=== PATIENT | male | born 1960 | race Caucasian/White ===

== ENCOUNTER 2017-07-26 18:33 | Emergency (ER) | payer OTHER ==
[2017-07-26 18:47] VITALS: RESP 18
[2017-07-26 19:51] VITALS: BP 150/79; PULSE 65; TEMP 97.7
[2017-07-26 19:53] VITALS: O2SAT 98
--- NOTE | 2017-07-26 19:53 | C.PDOC ---
History Of Present Illness 56 year old male presents to the ED for evaluation of dizziness and headache which began around 5 days ago. Patient states he was at work when he accidentally struck his head against a metal beam. Patient notes he initially experienced slight nausea and has been experiencing intermittent "pounding" headaches. Otherwise, patient denies LOC, vision change, extremity numbness/ weakness. - HPI Chief Complaint (Nursing): Trauma History Per: Patient History/Exam Limitations: no limitations Onset/Duration Of Symptoms: Days, Intermittent Episodes Injury Occurred (Timing): Days Ago: (4) Associated Symptoms: Dizziness Additional History Per: Patient Past Medical History Reviewed: Historical Data, Nursing Documentation, Vital Signs Vital Signs: Last Vital Signs Temp 97.7 F 07/26/17 19:47 Pulse 65 07/26/17 19:47 Resp 18 07/26/17 19:47 BP 150/79 07/26/17 19:47 Pulse Ox 98 07/26/17 23:00 - Medical History PMH: Arthritis, HTN Surgical History: No Surg Hx Family History: States: Unknown Family Hx - Social History Hx Tobacco Use: Yes Hx Alcohol Use: No Hx Substance Use: No - Immunization History Hx Tetanus Toxoid Vaccination: No Hx Influenza Vaccination: No Hx Pneumococcal Vaccination: No Review Of Systems Eyes: Negative for: Vision Change Neurological: Positive for: Headache, Dizziness. Negative for: Weakness, Numbness, Other (LOC) Physical Exam - Physical Exam Appears: Non-toxic, No Acute Distress Skin: Normal Color, Warm, Dry Head: Atraumatic, Normacephalic, No Tenderness, No Swelling, No Abrasion, No Laceration Eye(s): bilateral: Normal Inspection, PERRL, EOMI Oral Mucosa: Moist Neck: Supple Cardiovascular: Rhythm Regular, No Murmur Respiratory: Normal Breath Sounds, No Accessory Muscle Use Extremity: Normal ROM, Capillary Refill (less than 2 seconds ) Neurological/Psych: Oriented x3, Normal Speech, Normal Cognition, Normal Cranial Nerves, Normal Motor, Normal Sensation, Other (heal to capone, finger to nose, protonator drift are all unremarkable. Patient is able to recall names of objects. Patient's immediate and short-term memory is intact ) Gait: Steady ED Course And Treatment O2 Sat by Pulse Oximetry: 98 (on RA) Pulse Ox Interpretation: Normal Medical Decision Making Medical Decision Making: Progress: Patient's neurological exam was unremarkable with no significant findings. Patient refused CT scan at this time. Patient is informed that his symptoms are likely indicative of post-concussive syndrome and are likely to self-resolve in a few weeks. Patient is advised to follow up with his PMD and referred neurologist within 1- 2 days for further evaluation and/or return to the ED if symptoms return or worsen. Disposition - Disposition Referrals: [facility] at [facility] [Outside] Disposition: HOME/ ROUTINE Disposition Time: 05:07 Condition: FAIR Prescriptions: Acetaminophen/Butalbital/Caf [Fioricet] 1 tab PO TID PRN #21 tab PRN Reason: Pain, Severe (8-10) Instructions: Butalbital/Acetaminophen/Caffeine (By mouth), Concussion (ED), Head Injury (ED) Forms: General Discharge Instructions, [facility] (Malawian) - Clinical Impression Clinical Impression: Concussion injury of brain - Scribe Statement The provider has reviewed the documentation as recorded by the Scribe (Digna Blanco) Provider Attestation: All medical record entries made by the Scribe were at my direction and personally dictated by me. I have reviewed the chart and agree that the record accurately reflects my personal performance of the history, physical exam, medical decision making, and the department course for this patient. I have also personally directed, reviewed, and agree with the discharge instructions and disposition.
== END 2017-07-26 19:51 | disposition home or self-care (01) ==
LOC: C.ER 18:33
DX: S06.0X0A Concussion without loss of consciousness, initial encounter (principal); W22.8XXA Striking against or struck by other objects, initial encounter; Y92.89 Other specified places as the place of occurrence of the external cause; Y99.0 Civilian activity done for income or pay

== ENCOUNTER 2017-10-05 19:18 | Emergency (ER) | payer OTHER ==
--- NOTE | 2017-10-05 21:01 | C.PDOC ---
History Of Present Illness 57 y/o male presents to ED with complaints of cough, throat pain, myalgias, subjective fever x 3 days. Patient denies receiving flu vaccine, sick contacts or any other complaints at this time. Time Seen by Provider: 10/05/17 20:47 Chief Complaint (Nursing): Flu-like Symptoms History Per: Patient History/Exam Limitations: no limitations Onset/Duration Of Symptoms: Days (3) Current Symptoms Are (Timing): Still Present Location Of Pain: Throat, Diffuse Myalgias, Headache Sick Contacts (Context): None Associated Symptoms: Fever, Chills, Sore Throat, Cough, Sputum, Myalgias. denies: Nausea, Vomiting, Diarrhea Ear Symptoms: Bilateral: None Past Medical History Reviewed: Historical Data, Nursing Documentation, Vital Signs Vital Signs: Last Vital Signs Temp 99.3 F 10/05/17 21:52 Pulse 87 10/05/17 21:52 Resp 22 10/05/17 21:52 BP 132/71 10/05/17 21:52 Pulse Ox 99 10/06/17 15:54 - Medical History PMH: Arthritis, HTN Denies: Chronic Kidney Disease Family History: States: Unknown Family Hx - Social History Hx Tobacco Use: Yes Hx Alcohol Use: No Hx Substance Use: No - Immunization History Hx Tetanus Toxoid Vaccination: No Hx Influenza Vaccination: No Hx Pneumococcal Vaccination: No Review Of Systems Constitutional: Positive for: Fever, Chills, Malaise ENT: Positive for: Nose Discharge, Throat Pain. Negative for: Ear Pain Cardiovascular: Negative for: Chest Pain Respiratory: Positive for: Cough. Negative for: Shortness of Breath Gastrointestinal: Negative for: Nausea, Vomiting, Abdominal Pain Skin: Negative for: Rash Neurological: Negative for: Weakness, Numbness Physical Exam - Physical Exam Appears: Non-toxic, Other (uncomfortable, unwell) Skin: Warm, Dry Head: Atraumatic, Normacephalic Eye(s): bilateral: Normal Inspection Ear(s): Bilateral: Normal Nose: No Discharge Oral Mucosa: Moist Tongue: Normal Appearing Lips: Other (mild chapped) Throat: Erythema, Exudate (scant adjacent to uvula) Neck: Supple Lymphatic: No Adenopathy Chest: No Deformity, No Tenderness Cardiovascular: Rhythm Regular, No Murmur Respiratory: No Decreased Breath Sounds, No Wheezing Gastrointestinal/Abdominal: Soft, No Tenderness Neurological/Psych: Oriented x3, Normal Speech, Normal Cognition ED Course And Treatment O2 Sat by Pulse Oximetry: 99 Medical Decision Making Medical Decision Making: pt with 3 days of flu like symptoms and sore throat with neg rapid strep, d/c home with tamiflu, pmd. Disposition - Disposition Referrals: Ranjeet Blanco MD [Staff Provider] - Disposition: HOME/ ROUTINE Disposition Time: 21:41 Condition: IMPROVED Additional Instructions: Drink increased fluids, bed rest, tylenol or motrin every 4-6 hours for pain and fever. Follow up Dr Blanco next week. Instructions: Influenza (ED) Forms: General Discharge Instructions, [facility] (South Korean), Work Excuse - Clinical Impression Clinical Impression: Influenza-like illness
[2017-10-05 21:53] VITALS: BP 132/71; PULSE 87; RESP 22; TEMP 99.3
[2017-10-06 15:54] VITALS: O2SAT 99
== END 2017-10-05 21:54 | disposition home or self-care (01) ==
LOC: C.ER 19:18
DX: J11.1 Influenza due to unidentified influenza virus with other respiratory manifestations (principal)

== ENCOUNTER 2018-02-08 06:27 | Day surgery (SDC) | payer OTHER ==
[2018-02-08] MEDS ORDERED: ceFAZolin 1 gm in NS 2 GM/200 ML BAG IVPB ONE (07:35)
[2018-02-08] MEDS ORDERED: Propofol 10 mg/ml Inj (20 ML) ONE (07:57)
[2018-02-08] MEDS ORDERED: Midazolam 2 MG/2 ML VIAL ONE (07:57)
[2018-02-08] MEDS: Lidocaine/Epinephrine 1% 1:100000 10 ML IJ ONE ×2 (08:22→08:38)
[2018-02-08] MEDS: Bupivacaine HCl 0.25% PF (30 ml) Inj ONE ×3 (08:22→09:30)
[2018-02-08] MEDS ORDERED: Neostigmine Methylsulfate 3mg/3ml Syringe IV ONE (09:27)
[2018-02-08] MEDS ORDERED: HYDROmorphone 0.5 mg/0.5 ml ISec IVP PRN (10:02)
--- NOTE | 2018-02-08 10:15 | PCM.SURG1 ---
Surgeon's Initial Post Op Note - Surgeon's Notes Surgeon: Bon Cabello MD Meter Repair Shop Supervisor: HELEN Daniel Type of Anesthesia: General Endo Pre-Operative Diagnosis: Umbilical hernia Operative Findings: Umbilical hernia incarcerated Post-Operative Diagnosis: Incarcerated Umbilical hernia Operation Performed: Robotic Incarcerated Umbilical hernia repair with mesh. Lap Bilateral TAP block placement Specimen/Specimens Removed: Umbilical hernial sac and content Estimated Blood Loss: EBL {In ML}: 10 Blood Products Given: N/A Drains Used: No Drains Post-Op Condition: Good Date of Surgery/Procedure: 02/08/18 Time of Surgery/Procedure: 10:15
[2018-02-08 11:46] VITALS: RESP 16
[2018-02-08] MEDS ORDERED: Oxycodone/Acetaminophen 5/325 mg Tab PO ONE (12:30)
[2018-02-08 15:45] VITALS: BP 98/64; PULSE 68; TEMP 97.7; O2SAT 96
--- NOTE | 2018-02-08 21:33 | OP ---
PROCEDURE DATE: 02/08/2018 PREOPERATIVE DIAGNOSIS: Umbilical hernia. POSTOPERATIVE DIAGNOSIS: Incarcerated umbilical hernia containing omentum. PROCEDURES DONE: 1. Robotic incarcerated umbilical hernia repair with a mesh. 2. Laparoscopic bilateral TAP block placement. SURGEON: The procedure was done by Herbert coughlin MD COMPUTER SYSTEMS TECHNICIAN: HELEN Daniel ANESTHESIA: General endotracheal tube anesthesia. ESTIMATED BLOOD LOSS: Around 5 mL. DRAINS: None. PATHOLOGY: Umbilical hernial sac and contents sent to the Pathology. COMPLICATIONS: None. INTRAOPERATIVE FINDINGS: The patient had incarcerated omentum in the umbilical hernial sac and defect. DESCRIPTION OF PROCEDURE: On intraoperative steps, this 57-year-old male was diagnosed with umbilical hernia. The patient was consented for the robotic umbilical hernia repair with a mesh and brought to the OR, placed supine on the operating table. After induction of the anesthesia, abdomen was prepped and draped in the usual sterile fashion. A 5-mm incision was made in the left upper quadrant. Visiport technique was used. Peritoneal cavity was entered. Another 3-8 mm port was placed in the left flank and left lower quadrant. Robot was brought in. Camera arm as well as arm 1 and arm 2 were docked. Patient had incarcerated omentum in the umbilical hernial sac that was reduced back into the peritoneal cavity. The defect was closed with #1 Prolene V-Loc suture, and a 7-cm circular mesh was implanted. The size of the defect was 2 x 2 cm size and after proper implantation of the mesh, a laparoscopic bilateral transverse abdominis muscle block was given first on the right side then on the left side. A 30:30 mL of Marcaine was given in the transverse abdominal muscle plane. After proper TAP block, the specimen was sent off the table for the pathology. All the instruments were taken out. Robot was undocked. All the ports were taken out under vision, pneumo was deflated. All the left flank port sites were closed in two layers, subcu with a 2-0 Vicryl, skin with a 4-0 Monocryl. Dry sterile dressing was applied. The patient tolerated the procedure well. Count of instrument and gauze was correct. There was no apparent complication. Herbert Cabello MD
== END 2018-02-08 14:10 | disposition home or self-care (01) ==
LOC: C.SDS 06:27
PROVIDERS: ATTEND Surgery Surgical Critical Care
DX: K42.0 Umbilical hernia with obstruction, without gangrene (principal)
CPT/HCPCS: 49653; 64488; 88302; J0690; J1170; J2250; J2405; J2704; J2710; J3010

== ENCOUNTER 2018-04-15 20:49 | Emergency (ER) | payer BC, OTHER ==
[2018-04-15 21:08] VITALS: BP 141/62; PULSE 88; RESP 18; TEMP 98.3; O2SAT 100
[2018-04-15] MEDS ORDERED: Lidocaine 2% Inj (20ml) INFIL STA (21:12)
[2018-04-15] MEDS ORDERED: Bacitracin 500 Units/gm Oint Foilpak UD TOP ONE (21:12)
--- NOTE | 2018-04-15 21:17 | C.PDOC ---
History Of Present Illness 57 year old male presents to the emergency department status-post cutting his right thumb using a knife. He denies other injuries, numbness, or weakness. Time Seen by Provider: 04/15/18 20:55 Chief Complaint (Nursing): Abnormal Skin Integrity History Per: Patient History/Exam Limitations: no limitations Onset/Duration Of Symptoms: Mins (30) Current Symptoms Are (Timing): Still Present Location Of Injury: Right: Hand (thumb) Quality Of Symptoms: Other (laceration) Past Medical History Reviewed: Historical Data, Nursing Documentation, Vital Signs Vital Signs: Last Vital Signs Temp 98.3 F 04/15/18 20:56 Pulse 88 04/15/18 20:56 Resp 18 04/15/18 20:56 BP 141/62 04/15/18 20:56 Pulse Ox 100 04/15/18 21:31 - Medical History PMH: No Chronic Diseases Denies: Chronic Kidney Disease Surgical History: No Surg Hx Family History: States: No Known Family Hx - Social History Hx Tobacco Use: Yes Hx Alcohol Use: Yes Hx Substance Use: No - Immunization History Hx Tetanus Toxoid Vaccination: No Hx Influenza Vaccination: No Hx Pneumococcal Vaccination: No Review Of Systems Except As Marked, All Systems Reviewed And Found Negative. Skin: Positive for: Other (laceration to the right thumb) Neurological: Negative for: Weakness, Numbness Physical Exam - Physical Exam Appears: Non-toxic, No Acute Distress Skin: Warm, Dry, Other (1cm linear laceration to the base of the dorsal right thumb) Head: Atraumatic, Normacephalic Eye(s): bilateral: Normal Inspection Neck: Normal, Supple Extremity: Normal ROM (at the right thumb) Neurological/Psych: Oriented x3, Normal Speech, Normal Cognition, Normal Motor, Normal Sensation, Normal Reflexes ED Course And Treatment O2 Sat by Pulse Oximetry: 100 (RA) Pulse Ox Interpretation: Normal Progress Note: Plan: Bacitracin 1ea Top. Lidocaine 2% 5ml Laceration - Laceration Repair Right Thumb Wound Length (In cm): 1 Description Of Wound: Linear Anesthesia: Lidocaine 2% Wound Examination: Irrigated With Saline Wound Closure: Suture (one) Suture Technique And Material Used: Interrupted, Nylon (4-O) Wound Complexity: Simple Disposition - Disposition Referrals: Ranjeet Blanco MD [Staff Provider] - Disposition: HOME/ ROUTINE Disposition Time: 21:30 Condition: GOOD Additional Instructions: Clean twice a day starting Tuesday night and then apply bacitracin. Suture to be removed within 7 days. Return sooner if worsened. Prescriptions: Bacitracin Ointment [Bacitracin] 30 gm TOP BID #1 tube Instructions: Laceration Repair Forms: [facility] ([place]an) - Clinical Impression Clinical Impression: Finger laceration - PA / CORPORATE QUALITY MANAGER / Resident Statement MD/DO has reviewed & agrees with the documentation as recorded. - Scribe Statement The provider has reviewed the documentation as recorded by the Scribe (Gonsalo Rollins) All medical record entries made by the Scribe were at my direction and personally dictated by me. I have reviewed the chart and agree that the record accurately reflects my personal performance of the history, physical exam, medical decision making, and the department course for this patient. I have also personally directed, reviewed, and agree with the discharge instructions and disposition.
[2018-04-15] MEDS ORDERED: Bacitracin 500 Units/gm Oint Foilpak UD ONE (21:20)
== END 2018-04-15 21:38 | disposition home or self-care (01) ==
LOC: C.ER 20:49
DX: S61.011A Laceration without foreign body of right thumb without damage to nail, initial encounter (principal); W26.0XXA Contact with knife, initial encounter